=== PATIENT | female | born 1985 | race Two or more races ===

== ENCOUNTER 2023-06-12 19:01 | Inpatient (IN) | payer MEDICAID ==
[~2023-06-12] VITALS: Ht 162.6 cm; Wt 72.6 kg
[2023-06-12 19:50] VITALS: BP 127/77; PULSE 61; RESP 18; TEMP 98.1
[2023-06-12] MEDS ORDERED: AMPICILLIN 2,000 MG in NACL 0.9% MINI-BAG PLUS 100 ML IV SCH (19:55)
[2023-06-12] MEDS ORDERED: MORPHINE SULFATE 10 MG/ML VIAL IVP PRN (19:55)
[2023-06-12] MEDS ORDERED: ONDANSETRON 4 MG/2 ML VIAL IVP PRN (19:55)
[2023-06-12] MEDS ORDERED: OXYTOCIN 20 UNITS in LACTATED RINGERS 1,000 ML IV SCH (19:55)
[2023-06-12 20:47] LABS: APPEARANCE,URINE CLEAR (CLEAR); BILIRUBIN,URINE NEGATIVE (NEGATIVE); BLOOD, URINE 2+ (NEGATIVE); COLOR,URINE YELLOW (YELLOW); LEUKOCYTE ESTERASE ,URINE NEGATIVE (NEGATIVE); NITRITE, URINE NEGATIVE (NEGATIVE); PROTEIN,URINE TRACE (NEGATIVE); UGLUCOSE NEGATIVE (NEGATIVE); UROBILINOGEN,URINE 0.2 EU/dL (0.2 - 1)
[2023-06-12 21:10] LABS: BACTERIA,URINE 1+ /HPF (None Seen); RBC,URINE 11-20 (MOD) /HPF (0-5); WBC,URINE 0-5 /HPF (0-5)
[2023-06-12 21:32] LABS: BASOPHILS % (AUTO) 0.4 % (0.0-2.0); EOSINOPHILS % (AUTO) 0.5 % (0.0-4.0); HEMATOCRIT 37.5 % (36-48); HEMOGLOBIN 12.7 g/dL (12.0-16.0); LYMPHOCYTES # (AUTO) 2.2 K/uL (2.5-16.5); LYMPHOCYTES % (AUTO) 21.1 % (20.5-51.1); MEAN CORPUSCULAR HEMOGLOBIN 31 pg (27-31); MEAN CORPUSCULAR HGB CONC 34 g/dL (33-37); MEAN CORPUSCULAR VOLUME 89.9 fL (80-94); MONOCYTES # (AUTO) 0.5 K/uL (0.8-1.0); NEUTROPHILS # (AUTO) 7.8 K/uL (1.8-7.7); PLATELET COUNT (AUTO) 170 K/uL (140-450); RED BLOOD CELL COUNT(AUTO) 4.17 MIL/uL (4.20-5.40); RED CELL DISTRIBUTION WIDTH 13.4 % (11.6-13.7); WHITE BLOOD COUNT (AUTO) 10.6 K/uL (4.8-10.8)
[2023-06-12] MEDS: LACTATED RINGERS 1,000 ML IV SCH (21:32)
[2023-06-12 21:55] LABS: INR 0.9 (0.8-1.2); PARTIAL THROMBOPLASTIN TIME 25.4 secs (22-35.6); PROTHROMBIN TIME 9.5 secs (10.8-13.4)
[2023-06-12 22:17] LABS: ALBUMIN 2.8 g/dL (3.4-5.0); ANION GAP 14.6 (8-16); CREATININE 0.6 mg/dL (0.6-1.3); POTASSIUM 3.6 mmol/L (3.5-5.1); TOTAL BILIRUBIN 0.3 mg/dL (0.0-1.0)
[2023-06-12] MEDS ORDERED: PRETAB PO (23:43)
[2023-06-12] MEDS ORDERED: OSC500 PO (23:43)
[2023-06-12] MEDS ORDERED: FERR325E14 PO (23:43)
[2023-06-13] MEDS ORDERED: MISOPROSTOL 25 MCG TAB ONE (00:07)
[2023-06-13] MEDS: LACTATED RINGERS 1,000 ML IV SCH ×4 (03:31→17:13)
[2023-06-13] MEDS ORDERED: AMPICILLIN 2,000 MG VIAL ONE (05:05)
[2023-06-13 05:44] VITALS: BP 141/69; PULSE 58
[2023-06-13] MEDS ORDERED: ROPIVACAINE 0.2%/NS PREMIX 200 ML EPI ONE (07:59)
[2023-06-13] MEDS ORDERED: OXYTOCIN 20 UNITS/LR PREMIX 1,000 ML IV ONE ×2 (08:53→20:21)
[2023-06-13] MEDS ORDERED: AMPICILLIN 1,000 MG VIAL ONE ×3 (09:54→17:22)
[2023-06-13] MEDS: AMPICILLIN 1,000 MG in NACL 0.9% MINI-BAG PLUS 50 ML IV SCH ×2 (09:57→13:58)
[2023-06-13 11:24] LABS: AMPHETAMINE, URINE NEGATIVE ng/ml (NEG <=1000); BARBITURATE, URINE NEGATIVE ng/ml (NEG <=200); BENZODIAZEPINE, URINE NEGATIVE ng/mL (NEG <=200); CANNABINOID, URINE NEGATIVE ng/mL (NEG <=50); COCAINE, URINE NEGATIVE ng/mL (NEG <=300); OPIATE, URINE NEGATIVE ng/mL (NEG <=2000); PHENCYCLIDINE SCREEN,URINE NEGATIVE ng/mL (NEG <=25)
[2023-06-13] MEDS ORDERED: MISOPROSTOL 25 MCG TAB VG SCH (12:00)
[2023-06-13] MEDS ORDERED: GENTAMICIN PER PHARMACY MC PRN (17:35)
[2023-06-13] MEDS ORDERED: CLINDAMYCIN 900 MG in DEXTROSE 5% 100 ML IV SCH (17:35)
[2023-06-13] MEDS ORDERED: NACL 0.9% 1,000 ML IV SCH ×2 (17:40→17:50)
[2023-06-13] MEDS ORDERED: GENTAMICIN 80 MG/2 ML VIAL ONE (17:42)
[2023-06-13] MEDS ORDERED: GENTAMICIN 80 MG in DEXTROSE 5% 100 ML IV SCH (18:00)
[2023-06-13] MEDS ORDERED: ACETAMINOPHEN 325 MG TAB PO SCH (18:10)
[2023-06-13] MEDS ORDERED: CLINDAMYCIN 900MG/D5W PM 50 ML IV SCH (19:00)
[2023-06-13] MEDS ORDERED: CITRIC ACID/SODIUM CITRATE 30 ML UDC PO SCH (19:35)
[2023-06-13] MEDS ORDERED: CITRIC ACID/SODIUM CITRATE 30 ML UDC ONE (19:55)
[2023-06-13] MEDS ORDERED: MORPHINE PRES FREE 10 MG/10 ML AMP IV ONE (20:24)
[2023-06-13] MEDS ORDERED: METHYLERGONOVINE 0.2 MG/ML AMP ONE (20:25)
[2023-06-13] MEDS ORDERED: EPINEPHrine 1:1000 1 MG/ML VIAL IV ONE (20:28)
[2023-06-13] MEDS ORDERED: KETOROLAC 30 MG/ML VIAL IVP PRN ×2 (23:05→23:35)
[2023-06-13] MEDS ORDERED: METHYLERGONOVINE 0.2 MG/ML AMP IM PRN (23:05)
[2023-06-13] MEDS ORDERED: MEASLES, MUMPS, AND RUBELLA 1 VIAL SQVAC ONE (23:05)
[2023-06-13] MEDS ORDERED: ONDANSETRON 4 MG/2 ML VIAL IVP PRN (23:35)
[2023-06-13] MEDS ORDERED: diphenhydrAMINE 50 MG/ML VIAL IVP PRN (23:35)
[2023-06-14 05:38] LABS: BASOPHILS % (AUTO) 0.1 % (0.0-2.0); HEMATOCRIT 28.7 % (36-48); HEMOGLOBIN 9.7 g/dL (12.0-16.0); LYMPHOCYTES % (AUTO) 4.1 % (20.5-51.1); MEAN CORPUSCULAR HEMOGLOBIN 30 pg (27-31); MEAN CORPUSCULAR HGB CONC 34 g/dL (33-37); MEAN CORPUSCULAR VOLUME 89.3 fL (80-94); MONOCYTES # (AUTO) 0.9 K/uL (0.8-1.0); MONOCYTES % (AUTO) 3.7 % (1.7-9.3); NEUTROPHILS # (AUTO) 21.9 K/uL (1.8-7.7); NEUTROPHILS % (AUTO) 92.1 % (42.2-75.2); PLATELET COUNT (AUTO) 154 K/uL (140-450); RED BLOOD CELL COUNT(AUTO) 3.22 MIL/uL (4.20-5.40); RED CELL DISTRIBUTION WIDTH 13.7 % (11.6-13.7); WHITE BLOOD COUNT (AUTO) 23.8 K/uL (4.8-10.8)
[2023-06-14] MEDS ORDERED: OXYTOCIN 20 UNITS/LR PREMIX 1,000 ML IV ONE (06:12)
[2023-06-14] MEDS: OXYTOCIN 20 UNITS in LACTATED RINGERS 1,000 ML IV SCH ×2 (06:58→15:00)
[2023-06-14] MEDS: IBUPROFEN 800 MG TAB PO PRN (18:33)
[2023-06-14] MEDS ORDERED: CAMERA MC ONE (19:40)
[2023-06-14] MEDS: oxyCODONE/APAP 5/325 MG 1 TAB TAB PO PRN (22:49)
[2023-06-15] MEDS: IBUPROFEN 800 MG TAB PO PRN ×3 (02:39→20:26)
[2023-06-15] MEDS: oxyCODONE/APAP 5/325 MG 1 TAB TAB PO PRN ×3 (09:13→23:00)
[2023-06-15] MEDS ORDERED: CAMERA MC ONE (20:21)
[2023-06-16] MEDS: IBUPROFEN 800 MG TAB PO PRN ×4 (02:07→23:58)
[2023-06-16] MEDS: oxyCODONE/APAP 5/325 MG 1 TAB TAB PO PRN ×3 (05:04→19:51)
[2023-06-16] MEDS: SIMETHICONE 80 MG TAB.CHEW PO PRN ×2 (08:53→16:42)
[2023-06-16] MEDS: bisacodyL 5 MG TABEC PO PRN (09:04)
[2023-06-17] MEDS: oxyCODONE/APAP 5/325 MG 1 TAB TAB PO PRN ×2 (03:46→10:11)
[2023-06-17] MEDS ORDERED: CAMERA MC ONE (05:01)
[2023-06-17] MEDS: IBUPROFEN 800 MG TAB PO PRN (09:05)
[2023-06-17] MEDS: bisacodyL 5 MG TABEC PO PRN (09:06)
== END 2023-06-17 11:00 | disposition home or self-care (01) | DRG 540 ==
LOC: MLD 19:01 → MFCC 06-13 23:14
PROVIDERS: ADMIT Obstetrics & Gynecology; ATTEND Obstetrics & Gynecology
PROC: 10D00Z1 Extraction of Products of Conception, Low, Open Approach (ICD-10-PCS; principal; 2023-06-14)
DX: O62.1 Secondary uterine inertia (principal); O41.1230 Chorioamnionitis, third trimester, not applicable or unspecified; Z20.822 Contact with and (suspected) exposure to COVID-19; O76 Abnormality in fetal heart rate and rhythm complicating labor and delivery; Z37.0 Single live birth; Z3A.39 39 weeks gestation of pregnancy
CPT/HCPCS: 36415; 51702; 59200; 76815; 80053; 80305; 81001; 85025; 85610; 85730; 86592; 86762; 86886; 86900; 86901; 87340; 87653-90; J0171; J0290; J0690; J1580; J1885; J2210; J2270; J2405; J2590; J2795; J7060; J7120

== ENCOUNTER 2023-06-26 14:45 | Emergency (ER) | payer MEDICAID ==
[~2023-06-26] VITALS: Ht 154.9 cm; Wt 69.9 kg
[~2023-06-26 14:45] MED LIST: FERR325E14 PO; OSC500 PO; PRETAB PO
[2023-06-26 15:21] VITALS: BP 102/64; PULSE 95; RESP 18; TEMP 97.3; O2SAT 97
[2023-06-26] MEDS ORDERED: SULF-59 PO (17:43)
[2023-06-26 17:58] VITALS: BP 110/64; PULSE 89; RESP 18; TEMP 97.3
[2023-06-26 18:18] VITALS: O2SAT 99
== END 2023-06-26 17:58 | disposition home or self-care (01) ==
LOC: MED 14:45
DX: O86.00 Infection of obstetric surgical wound, unspecified (principal); Z98.890 Other specified postprocedural states; Z79.899 Other long term (current) drug therapy
CPT/HCPCS: 99283